=== PATIENT | female | born 1995 | race African-American/Black ===

== ENCOUNTER 2025-08-22 07:03 | Day surgery (SDC) | payer BC ==
[2025-08-21 09:11] VITALS: BMI 38.9
[2025-08-22 08:05] LABS: Hematocrit 37.3 % (34.9-44.5)
[2025-08-22] MEDS ORDERED: PROPOFOL 20 ML ONE (08:16)
[2025-08-22 08:18] LABS: BHCG - Serum Negative (NEGATIVE); Pregs Control Background? CLEAR/WHITE (CLR/WHITE); Pregs Control Bar Appear? YES (CONTROL BAR)
[2025-08-22] MEDS ORDERED: Rocuronium Bromide 10 MG/ML (10ML VIAL) ONE (08:18)
[2025-08-22] MEDS ORDERED: AFRIN NASAL MIST 15 ML BOT ONE (08:25)
[2025-08-22] MEDS ORDERED: Ferric Subsulfate 8 ML TOPICAL SOLN ONE (08:42)
[2025-08-22] MEDS ORDERED: Lidocaine 1% w/Epinephrine 1:200K 30 ML VIAL ONE (08:42)
[2025-08-22] MEDS ORDERED: SUGAMMADEX SODIUM 200 MG/2 ML VIAL ONE (09:47)
[2025-08-22] MEDS ORDERED: Oxymetazoline HCl 0.05% (15 ML) ONE (09:50)
[2025-08-22] MEDS ORDERED: Hydrocodone-Acetamin 15 ML UDCUP ONE (10:57)
== END 2025-08-22 11:50 | disposition home or self-care (01) ==
LOC: CSHSDC 07:03
PROVIDERS: ATTEND Specialist
PROC: 0CBQ0ZZ Excision of Adenoids, Open Approach (ICD-10-PCS; principal; 2025-08-22)
PROC: 0CBPXZZ Excision of Tonsils, External Approach (ICD-10-PCS; principal; 2025-08-22)
DX: J35.01 Chronic tonsillitis (principal); J35.3 Hypertrophy of tonsils with hypertrophy of adenoids; J34.3 Hypertrophy of nasal turbinates; J30.9 Allergic rhinitis, unspecified; G47.33 Obstructive sleep apnea (adult) (pediatric)
CPT/HCPCS: 36415; 84703; 85014; 88304; J1100; J2704